=== PATIENT | male | born 1940 | race Caucasian/White ===

== ENCOUNTER 2017-07-03 09:08 | Day surgery (SDC) | payer MEDICARE, OTHER ==
[~2017-07-03 09:08] MED LIST: Lactated Ringers 1,000 ML IV SCH; Sodium Chloride 0.9% 10 ML Syringe FLUSH PRN
[2017-07-03] MEDS ORDERED: Propofol 200 MG/20 ML SDV ONE ×2 (09:53→09:57)
[2017-07-03] MEDS ORDERED: Midazolam 1 MG/ML 2 ML SDV ONE ×2 (09:53→09:57)
[2017-07-03] MEDS ORDERED: fentaNYL 100 MCG/2 ML SDV ONE ×2 (09:53→09:57)
--- NOTE | 2017-07-03 09:58 | PCM.PN ---
- General Info Date of Service: 07/03/17 - Review of Systems Systems Review Comment:: 77-year-old male here for his initial screening colonoscopy. He denies any recent change in bowel habits or rectal bleeding. The patient is medically stable to proceed today. His recent history and physical is reviewed and there is no significant changes. I discussed the proposed colonoscopy with the patient. Risks such as but not limited to bleeding and GI injury or reviewed. He appears to understand and agrees to proceed. - Patient Data Vitals - Most Recent: Last Vital Signs Temp 97.8 F 07/03/17 09:29 Pulse 64 07/03/17 09:29 Resp 18 07/03/17 09:29 BP 175/84 H 07/03/17 09:29 Pulse Ox 95 07/03/17 09:29 Weight - Most Recent: 95.254 kg Med Orders - Current: Current Medications Lactated Ringer's (Ringers, Lactated) 1,000 mls @ 125 mls/hr IV ASDIRECTED NATHALIE Last Admin: 07/03/17 09:42 Dose: 125 mls/hr Sodium Chloride (Saline Flush) 10 ml FLUSH ASDIRECTED PRN PRN Reason: Keep Vein Open Discontinued Medications Fentanyl (Sublimaze) Confirm Administered Dose 100 mcg .ROUTE .STK-MED ONE Stop: 07/03/17 09:54 Midazolam HCl (Versed 1 Mg/Ml) Confirm Administered Dose 2 mg .ROUTE .STK-MED ONE Stop: 07/03/17 09:54 Propofol (Diprivan 20 Ml) Confirm Administered Dose 200 mg .ROUTE .STK-MED ONE Stop: 07/03/17 09:54 - Problem List Review Problem List Initiated/Reviewed/Updated: Yes - Assessment Assessment:: Colon cancer screening - Plan Plan:: Colonoscopy
--- NOTE | 2017-07-03 10:37 | PCM.OPNOTE ---
- General Post-Op/Procedure Note Date of Surgery/Procedure: 07/03/17 Operative Procedure(s): Colonoscopy with polypectomy Findings: Multiple colon polyps Extensive sigmoid diverticulosis Pre Op Diagnosis: Colon cancer screening Post-Op Diagnosis: Colon polyps. Diverticulosis Anesthesia Technique: MAC Primary Surgeon: Raffi Gomez Pathology: Colon polyps Output, Urine Amount: 0 EBL in mLs: 0 Complications: None Condition: Good Free Text/Narrative:: Intake & Output 07/02/17 07/03/17 07/03/17 22:59 06:59 14:59 Intake Total 600 Balance 600
[2017-07-03 13:42] VITALS: BP 139/75
--- NOTE | 2017-07-03 16:42 | OR ---
Date of Procedure: 07/03/2017 PREOPERATIVE DIAGNOSIS: Colon cancer screening. POSTOPERATIVE DIAGNOSES: Colon polyps and diverticulosis. OPERATIONS PERFORMED: Colonoscopy with polypectomy. INDICATIONS FOR SURGERY: This 77-year-old male was referred for his initial screening colonoscopy. FINDINGS: Two polyps were noted on today's exam. The patient had a 1-cm irregularly shaped sessile polyp noted in the ascending colon, and a 4-mm sessile polyp in the mid transverse colon. The patient also has extensive diverticulosis of the sigmoid colon, which does not appear to show any acute signs of inflammation or other complications. The remainder of the colon appeared normal. DESCRIPTION OF PROCEDURE: The patient was taken to the operating room. He was given the intravenous sedation, and with him in the left lateral decubitus position, digital rectal exam was performed showing no rectal masses. The Olympus colonoscope was inserted into the rectum. The retroflexed examination of the rectal canal was performed. The scope was then carefully advanced under direct visualization through the entire length of the colon until the cecum was reached. Cecal acquisition was confirmed by noting the normal internal cecal anatomy including the appendiceal orifice and the ileocecal valve. The scope was then slowly withdrawn sequentially re-examining the colonic segments. In the ascending colon, the larger polyp was identified; this was removed piecemeal in 2 sections with a polyp being completely removed with the cautery snare and the polyp being retrieved. The scope was then further withdrawn, and the transverse colon polyp was identified, removed with a cautery snare and retrieved. Examination was then completed by sequentially re-examining the colonic segments during withdrawal of the scope until the entire colon and rectum had been examined. The scope was then removed. The patient left the operating room in satisfactory condition. ESTIMATED BLOOD LOSS: Zero. COMPLICATIONS: None. PROGNOSIS: Good. JEY Gomez MD /[id number]
== END 2017-07-03 11:39 | disposition home or self-care (01) ==
LOC: LL.SDS 09:08
PROVIDERS: ATTEND Surgery
DX: Z12.11 Encounter for screening for malignant neoplasm of colon (principal); D12.2 Benign neoplasm of ascending colon; D12.3 Benign neoplasm of transverse colon; K57.30 Diverticulosis of large intestine without perforation or abscess without bleeding; I10 Essential (primary) hypertension; J44.9 Chronic obstructive pulmonary disease, unspecified; E78.5 Hyperlipidemia, unspecified; Z87.891 Personal history of nicotine dependence; Z79.82 Long term (current) use of aspirin; Z79.899 Other long term (current) drug therapy
CPT/HCPCS: 45380; 45385; J2250; J2704; J3010; J7120; 00812

== ENCOUNTER 2020-09-06 11:56 | Emergency (ER) | payer MEDICARE, OTHER ==
[2020-09-06] MEDS ORDERED: Nitroglycerin 0.4 MG Tab.SL SL PRN (12:05)
[2020-09-06 12:33] LABS: CHLORIDE,CL 95 mmol/L (98-107); SODIUM,NA 132 mmol/L (136-145)
[2020-09-06 12:35] LABS: ANION GAP 7.4 meq/L (7-15)
--- NOTE | 2020-09-06 13:06 | EDM.PDOC ---
ED HPI GENERAL MEDICAL PROBLEM - General Chief Complaint: Chest Pain Stated Complaint: chest pain Time Seen by Provider: 09/06/20 12:02 Source of Information: Reports: Patient, Family History Limitations: Reports: No Limitations - History of Present Illness INITIAL COMMENTS - FREE TEXT/NARRATIVE: Patient brought to ER by family due to two short episodes of central chest pain that happened this morning. Very brief. No accompanying diaphoresis/acute SOB. No radiation of pain. Pain free upon arrival. Family/patient report that he has felt a little more SOB the last few days, a little more congested in lungs. Hx mesothelioma. Did restart smoking cigarettes a month ago. Appetite down a bit recently. No fevers/chills/other acute changes. Denies CAD/RI history Chest Pain Score (Numeric/FACES): 5 - Related Data Allergies Allergy/AdvReac Type Severity Reaction Status Date / Time Penicillins Allergy Unknown Cannot Verified 09/06/20 12:00 Remember Home Meds: Home Meds Hydrochlorothiazide 25 mg PO QAM 11/24/14 [History] Propranolol [Inderal LA] 80 mg PO QAM 11/24/14 [History] Simvastatin 20 mg PO QAM 11/24/14 [History] Aspirin [Halfprin] 81 mg PO DAILY 07/03/17 [History] Albuterol/Ipratropium [DuoNeb 3.0-0.5 MG/3 ML] 3 ml .XX ASDIRECTED #1 box 09/06/20 [Rx] Azithromycin 250 mg PO DAILY #6 tablet 09/06/20 [Rx] Past Medical History HEENT History: Reports: Cataract Cardiovascular History: Reports: Hypertension Respiratory History: Reports: COPD Gastrointestinal History: Reports: None Genitourinary History: Reports: None [employer] History: Reports: None Musculoskeletal History: Reports: Fracture Neurological History: Reports: None Psychiatric History: Reports: None Endocrine/Metabolic History: Reports: None Hematologic History: Reports: None Immunologic History: Reports: None Oncologic (Cancer) History: Reports: Other (See Below) (mesothelioma) Dermatologic History: Reports: None - Past Surgical History HEENT Surgical History: Reports: Cataract Surgery Social & Family History - Tobacco Use Tobacco Use Status *Q: Current Every Day Tobacco User Years of Tobacco use: 58 Packs/Tins Daily: 0.2 Used Tobacco, but Quit: Yes Month/Year Tobacco Last Used: 08/2020 Second Hand Smoke Exposure: No - Caffeine Use Caffeine Use: Reports: Coffee Other Caffeine Use: 1-2 a day - Recreational Drug Use Recreational Drug Use: No ED ROS GENERAL - Review of Systems Review Of Systems: Comprehensive ROS is negative, except as noted in HPI. ED EXAM, GENERAL - Physical Exam Exam: See Below Exam Limited By: No Limitations General Appearance: Alert, No Apparent Distress, Obese Eye Exam: Bilateral Eye: EOMI, PERRL Ears: Hearing Grossly Normal, Other (has hearing aids) Nose: No: Nasal Deformity, Nasal Swelling, Nasal Drainage Throat/Mouth: Normal Lips, Normal Voice, No Airway Compromise, Other (missing a number of teeth) Neck: Normal Inspection, Supple, Non-Tender, Full Range of Motion Respiratory/Chest: No Respiratory Distress, Decreased Breath Sounds (throughout), Wheezing (minimal/faint/bases), Accessory Muscle Use (mild a bdominal breathing/patient says this is normal effort for him). No: Rales, Stridor, Retractions Cardiovascular: Regular Rate, Rhythm, No Murmur GI/Abdominal: Normal Bowel Sounds, Soft, Non-Tender, No Distention (Male) Exam: Deferred Rectal (Males) Exam: Deferred Back Exam: No: CVA Tenderness (L), CVA Tenderness (R), Muscle Spasm Extremities: Non-Tender, Normal Capillary Refill, Pedal Edema (mild, bilateral lower legs), Other (equal tone/strength). No: Duong's Sign Neurological: Alert, Oriented, Normal Cognition, No Motor/Sensory Deficits Psychiatric: Normal Affect, Normal Mood Skin Exam: Warm, Dry, Intact, Normal Color #1 Interpretation EKG Date: 09/06/20 Time: 12:13 Rhythm: Other (sinus) Rate (Beats/Min): 78 [place]: Normal P-Wave: Present QRS: Normal ST-T: Other (no obvious ischemic changes noted) QT: Normal EKG Interpretation Comments: periodic PACs noted Course - Vital Signs Last Recorded V/S: Last Vital Signs Temp 36.7 C 09/06/20 11:57 Pulse 76 09/06/20 11:57 Resp 20 09/06/20 11:57 BP 199/135 H 09/06/20 11:57 Pulse Ox 94 L 09/06/20 11:57 - Orders/Labs/Meds Orders: Active Orders 24 hr Category Date Time Status EKG Documentation Completion [RC] ASDIRECTED Care 09/06/20 12:04 Active RT Aerosol Therapy [RC] ASDIRECTED Care 09/06/20 14:33 Active Chest 1V Frontal [CR] Stat Exams 09/06/20 12:03 Taken PE Chest [Ang Chest] [CT] Stat Exams 09/06/20 12:55 Taken Nitroglycerin [Nitrostat] Med 09/06/20 12:05 Active 0.4 mg SL Q5M PRN Sodium Chloride 0.9% [Saline Flush] Med 09/06/20 12:04 Active 10 ml FLUSH ASDIRECTED PRN Saline Lock Insert [OM.PC] Stat Oth 09/06/20 12:04 Ordered Medication Orders Nitroglycerin (Nitroglycerin 0.4 Mg Tab.Sl) 0.4 mg SL Q5M PRN PRN Reason: Chest Pain Sodium Chloride (Sodium Chloride 0.9% 10 Ml Syringe) 10 ml FLUSH ASDIRECTED PRN PRN Reason: Keep Vein Open Last Admin: 09/06/20 15:55 Dose: 10 ml Documented by: ELISE Labs: Laboratory Tests 09/06/20 09/06/20 09/06/20 Range/Units 12:05 12:05 12:05 WBC 7.0 (4.0-10.2) K/uL RBC 5.16 (4.33-5.41) M/uL Hgb 15.6 D (13.1-16.8) g/dL Hct 46.5 (39.0-49.0) % MCV 90.1 (84.0-98.0) fL MCH 30.2 (28.2-33.3) pg MCHC 33.5 (31.7-36.0) g/dL RDW 14.1 (11.2-14.1) % Plt Count 262 (150-350) K/uL Neut % (Auto) 48.1 (45.0-80.0) % Lymph % (Auto) 28.6 (10.0-50.0) % Jenkins % (Auto) 16.5 H (2.0-14.0) % Eos % (Auto) 6.5 H (0.0-5.0) % Baso % (Auto) 0.3 (0.0-2.0) % Neut # (Auto) 3.39 (1.40-7.00) K/uL Lymph # (Auto) 2.01 (0.50-3.50) K/uL Jenkins # (Auto) 1.16 H (0.00-1.00) K/uL Eos # (Auto) 0.46 (0.00-0.50) K/uL Baso # (Auto) 0.02 (0.00-0.20) K/uL D-Dimer, Quantitative 552 H (0-400) ng/mL Sodium 132 L (136-145) mmol/L Potassium 3.7 (3.5-5.1) mmol/L Chloride 95 L (98-107) mmol/L Carbon Dioxide 33.3 H (21.0-32.0) mmol/L Anion Gap 7.4 (7-15) meq/L BUN 13 (7-18) mg/dL Creatinine 0.89 (0.51-1.17) mg/dL Est Cr Clr Drug Dosing 63.95 mL/min Estimated GFR (MDRD) > 60 mL/min Glucose 107 H (70-99) mg/dL Lactic Acid (0.4-2.0) mmol/L Calcium 9.5 (8.5-10.1) mg/dL Magnesium 2.3 (1.8-2.4) mg/dL Total Bilirubin 0.3 (0.2-1.0) mg/dL AST 21 (15-37) U/L ALT 27 (12-78) U/L Alkaline Phosphatase 39 L (46-116) IU/L Troponin I High Sens 10 (<=76) ng/L NT-Pro-B Natriuret Pep 470 H (0-125) pg/mL Total Protein 8.3 H (6.4-8.2) g/dL Albumin 3.4 (3.4-5.0) g/dL Specimen Type Urine Color Urine Appearance Urine pH (5.0-9.0) Ur Specific [place] (1.005-1.030) Urine Protein (NEGATIVE) mg/dL Urine Glucose (UA) (NEGATIVE) mg/dL Urine Ketones (NEGATIVE) mg/dL Urine Occult Blood (NEGATIVE) Urine Nitrite (NEGATIVE) Urine Bilirubin (NEGATIVE) Urine Urobilinogen (0.2-1.0) E.U./dL Ur Leukocyte Esterase (NEGATIVE) Urine RBC /HPF Urine WBC /HPF Ur Epithelial Cells /LPF Amorphous Sediment (0/HPF) /HPF Urine Bacteria (NONE TO FEW) /HPF Urine Mucus (NEGATIVE) /LPF 09/06/20 09/06/20 09/06/20 Range/Units 12:05 12:37 15:19 WBC (4.0-10.2) K/uL RBC (4.33-5.41) M/uL Hgb (13.1-16.8) g/dL Hct (39.0-49.0) % MCV (84.0-98.0) fL MCH (28.2-33.3) pg MCHC (31.7-36.0) g/dL RDW (11.2-14.1) % Plt Count (150-350) K/uL Neut % (Auto) (45.0-80.0) % Lymph % (Auto) (10.0-50.0) % Jenkins % (Auto) (2.0-14.0) % Eos % (Auto) (0.0-5.0) % Baso % (Auto) (0.0-2.0) % Neut # (Auto) (1.40-7.00) K/uL Lymph # (Auto) (0.50-3.50) K/uL [place] # (Auto) (0.00-1.00) K/uL Eos # (Auto) (0.00-0.50) K/uL Baso # (Auto) (0.00-0.20) K/uL D-Dimer, Quantitative (0-400) ng/mL Sodium (136-145) mmol/L Potassium (3.5-5.1) mmol/L Chloride (98-107) mmol/L Carbon Dioxide (21.0-32.0) mmol/L Anion Gap (7-15) meq/L BUN (7-18) mg/dL Creatinine (0.51-1.17) mg/dL Est Cr Clr Drug Dosing mL/min Estimated GFR (MDRD) mL/min Glucose (70-99) mg/dL Lactic Acid 1.9 (0.4-2.0) mmol/L Calcium (8.5-10.1) mg/dL Magnesium (1.8-2.4) mg/dL Total Bilirubin (0.2-1.0) mg/dL AST (15-37) U/L ALT (12-78) U/L Alkaline Phosphatase (46-116) IU/L Troponin I High Sens 11 (<=76) ng/L NT-Pro-B Natriuret Pep (0-125) pg/mL Total Protein (6.4-8.2) g/dL Albumin (3.4-5.0) g/dL Specimen Type Urinvoid Urine Color Dark yellow Urine Appearance Clear Urine pH 7.5 (5.0-9.0) Ur Specific [place] 1.020 (1.005-1.030) Urine Protein 30 H (NEGATIVE) mg/dL Urine Glucose (UA) Negative (NEGATIVE) mg/dL Urine Ketones Negative (NEGATIVE) mg/dL Urine Occult Blood Trace-intact H (NEGATIVE) Urine Nitrite Negative (NEGATIVE) Urine Bilirubin Negative (NEGATIVE) Urine Urobilinogen 1.0 (0.2-1.0) E.U./dL Ur Leukocyte Esterase Negative (NEGATIVE) Urine RBC 0-5 /HPF Urine WBC 0-5 /HPF Ur Epithelial Cells Not seen /LPF Amorphous Sediment Moderate H (0/HPF) /HPF Urine Bacteria Rare (NONE TO FEW) /HPF Urine Mucus Few H (NEGATIVE) /LPF Meds: Medications Generic Name Dose Route Start Last Admin Trade Name Freq PRN Reason Stop Dose Admin Nitroglycerin 0.4 mg 09/06/20 12:05 Nitroglycerin 0.4 Mg Tab.Sl SL Q5M PRN Chest Pain Sodium Chloride 10 ml 09/06/20 12:04 09/06/20 15:55 Sodium Chloride 0.9% 10 Ml Syringe FLUSH 10 ml ASDIRECTED PRN Administration Keep Vein Open Discontinued Medications Generic Name Dose Route Start Last Admin Trade Name Freq PRN Reason Stop Dose Admin Albuterol/Ipratropium 3 ml 09/06/20 14:32 Albuterol/Ipratropium 3.0-0.5 Mg/3 Ml Neb Soln NEB 09/06/20 14:33 ONETIME ONE Albuterol/Ipratropium Confirm 09/06/20 14:34 Albuterol/Ipratropium 3.0-0.5 Mg/3 Ml Neb Soln Administered 09/06/20 14:35 Dose 3 ml .ROUTE .STK-MED ONE Aspirin 324 mg 09/06/20 12:05 09/06/20 13:26 Aspirin 81 Mg Tab.Chew PO 09/06/20 12:06 324 mg ONETIME ONE Administration Iopamidol 100 ml 09/06/20 13:02 09/06/20 13:39 Iopamidol 755 Mg/Ml 100 Ml Bottle IVPUSH 09/06/20 13:03 100 ml ONETIME STA Administration Methylprednisolone Sodium Succinate 125 mg 09/06/20 15:19 09/06/20 15:55 Methylprednisolone Sodium Succinate 125 Mg/2 Ml Sdv IVPUSH 09/06/20 15:20 125 mg ONETIME ONE Administration - Re-Assessments/Exams Free Text/Narrative Re-Assessment/Exam: 09/06/20 13:08 Chest xray did not show any acute changes compared to one from 4 months ago. EKG showed no acute changes suggestive of ischemia. BP noted to be elevated. Has remained pain-free since arrival. ASA given. WBC normal. DDimer elevated. Patient/family wanted CT scan to formally rule out possible PE that could be contributing to presenting complaints. CT pending at this time. Mild increase BNP. No evidence fluid overload on exam/chest film. O2 sats/respiratory rate stable. 09/06/20 16:15 Patient given neb/felt improved. BP significantly improved. Solu-medrol IV. Suspect COPD exacerbation given recent heat/poor air quality/patient restarting smoking. Cannot rule out infectious component as small nonspecific left upper lobe change noted on CT. CT negative for PE. Will cover with Z-pack. Will also have patient perform regular DuoNebs this week. Recommend follow up with PCP next week for recheck. Patient has nebulizer at home but chooses not to keep on regular neb medication for his COPD. Departure - Departure Time of Disposition: 16:24 Disposition: Home, Self-Care 01 Condition: Good Clinical Impression: COPD exacerbation, Atypical chest pain - Discharge Information *PRESCRIPTION DRUG MONITORING PROGRAM REVIEWED*: Not Applicable *COPY OF PRESCRIPTION DRUG MONITORING REPORT IN PATIENT SERGIO: Not Applicable Prescriptions: Azithromycin 250 mg PO DAILY #6 tablet Albuterol/Ipratropium [DuoNeb 3.0-0.5 MG/3 ML] 3 ml .XX ASDIRECTED #1 box Referrals: PCP,Unknown [Primary Care Provider] - Forms: ED Department Discharge Additional Instructions: Get a follow up appointment to be rechecked at clinic next Friday or Friday. Do regular nebs this week. Take the Z-pack for 5 days. See if this helps. Follow up otherwise as needed if you have worsening problems/new symptoms. Sepsis Event Note (ED) - Evaluation Sepsis Screening Result: No Definite Risk - Focused Exam Vital Signs: Vital Signs Temp Pulse Resp BP Pulse Ox 09/06/20 11:57 36.7 C 76 20 199/135 H 94 L - My Orders Last 24 Hours: My Active Orders 09/06/20 12:03 Chest 1V Frontal [CR] Stat 09/06/20 12:04 EKG Documentation Completion [RC] ASDIRECTED Sodium Chloride 0.9% [Saline Flush] 10 ml FLUSH ASDIRECTED PRN Saline Lock Insert [OM.PC] Stat 09/06/20 12:05 Nitroglycerin [Nitrostat] 0.4 mg SL Q5M PRN 09/06/20 12:55 PE Chest [Ang Chest] [CT] Stat 09/06/20 14:33 RT Aerosol Therapy [RC] ASDIRECTED - Assessment/Plan Last 24 Hours: My Active Orders 09/06/20 12:03 Chest 1V Frontal [CR] Stat 09/06/20 12:04 EKG Documentation Completion [RC] ASDIRECTED Sodium Chloride 0.9% [Saline Flush] 10 ml FLUSH ASDIRECTED PRN Saline Lock Insert [OM.PC] Stat 09/06/20 12:05 Nitroglycerin [Nitrostat] 0.4 mg SL Q5M PRN 09/06/20 12:55 PE Chest [Ang Chest] [CT] Stat 09/06/20 14:33 RT Aerosol Therapy [RC] ASDIRECTED
[2020-09-06] MEDS: Aspirin 81 MG Tab.Chew PO ONE (13:26)
[2020-09-06] MEDS: Iopamidol 755 Mg/ML 100 ML Bottle IVPUSH STA (13:39)
[2020-09-06] MEDS: methylPREDNISolone Sodium Succinate 125 MG/2 ML SDV IVPUSH ONE (15:55)
[2020-09-06] MEDS: Sodium Chloride 0.9% 10 ML Syringe FLUSH PRN (15:55)
[2020-09-06] MEDS: Albuterol/Ipratropium 3.0-0.5 MG/3 ML Neb Soln ONE (18:30)
[2020-09-06] MEDS: Albuterol/Ipratropium 3.0-0.5 MG/3 ML Neb Soln NEB ONE (19:28)
[2020-09-06 19:34] VITALS: BP 138/77; PULSE 83
== END 2020-09-06 16:35 | disposition home or self-care (01) ==
LOC: LL.ED 11:56
DX: J44.1 Chronic obstructive pulmonary disease with (acute) exacerbation (principal); I10 Essential (primary) hypertension; Z72.0 Tobacco use; F17.210 Nicotine dependence, cigarettes, uncomplicated; Z88.0 Allergy status to penicillin; Z79.82 Long term (current) use of aspirin; Z79.899 Other long term (current) drug therapy
CPT/HCPCS: 36415; 71045; 71275; 80053; 81001; 83605; 83735; 83880; 84484; 85025; 85379; 93005; 96374; 99285-25; A9270-GY; J2930; J7620-GY; Q9967

== ENCOUNTER 2020-10-26 07:03 | Day surgery (SDC) | payer MEDICARE, OTHER ==
[~2020-10-26 07:03] MED LIST changes: -Lactated Ringers 1,000 ML IV SCH
[2020-10-26] MEDS ORDERED: Midazolam 1 MG/ML 2 ML SDV ONE ×2 (07:49→08:30)
[2020-10-26] MEDS ORDERED: Propofol 200 MG/20 ML SDV ONE ×2 (07:50→08:30)
[2020-10-26] MEDS: Lactated Ringers 1,000 ML IV SCH (07:59)
--- NOTE | 2020-10-26 08:38 | PCM.HPR ---
H & P Addendum review - H & P Addendum Review Date of Original H & P: 10/04/20 Date Reviewed: 10/26/20 Time Reviewed: 08:30 Patient was Examined: No Changes
--- NOTE | 2020-10-26 09:10 | PCM.OPNOTE ---
- General Post-Op/Procedure Note Date of Surgery/Procedure: 10/26/20 Operative Procedure(s): Colonoscopy Findings: Sig tics Pre Op Diagnosis: Hx Colon polyp Post-Op Diagnosis: Same Anesthesia Technique: MAC Primary Surgeon: Chilo Doan Anesthesia Provider: Michelle Del Toro Complications: None Condition: Good
[2020-10-26 13:21] VITALS: BP 149/91; PULSE 73
--- NOTE | 2020-10-26 14:18 | OR ---
Date of Procedure: 10/26/2020 PREOPERATIVE DIAGNOSIS: History of colon polyps. POSTOPERATIVE DIAGNOSIS: Diverticulosis. PROCEDURE: Colonoscopy. ANESTHESIA: IV sedation. PROCEDURE IN DETAIL: Patient was brought to the procedure room where he was placed on his left side and IV sedation administered. Digital rectal exam was performed, which was normal. Colonoscope was inserted and advanced into a tortuous sigmoid colon with multiple large diverticula. I was unable to pass the scope, so placed him in the supine position and then was able to pass the scope without difficulty to the level of the cecum. Cecal position was confirmed by identifying the appendiceal lumen and ileocecal valve. Prep was good and surfaces were well visualized. Upon withdrawing the scope, the ascending, transverse, and descending colon were normal. Sigmoid colon had multiple large diverticula present. No polyps were identified. Rectum was normal and retroflexion was normal. Air was removed and the scope withdrawn. Patient tolerated the procedure well and returned to recovery in stable condition. No further colonoscopy will be necessary due to the patient's age. JEY MASON MD /[id number]
== END 2020-10-26 09:45 | disposition home or self-care (01) ==
LOC: LL.SDS 07:03
PROVIDERS: ATTEND Surgery
DX: Z12.11 Encounter for screening for malignant neoplasm of colon (principal); K57.30 Diverticulosis of large intestine without perforation or abscess without bleeding; I10 Essential (primary) hypertension; E78.5 Hyperlipidemia, unspecified; J44.9 Chronic obstructive pulmonary disease, unspecified; Z86.010 Personal history of colon polyps
CPT/HCPCS: 00812; G0105; J2250; J2704; J7120